=== PATIENT | female | born 1995 | race Caucasian/White ===

== ENCOUNTER → 2019-05-05 | Outpatient (CLI) | payer BC ==
[~2019-05-05] MED LIST: BIRTH CONTROL PILLS; Norco 5-325 Ta1 EACH PO
[2019-05-07 16:07] LABS: HPV 16 Negative (Negative); HPV 18 Negative (Negative); HPV OTHER HR TYPES Negative (Negative)
[2019-05-08 05:08] LABS: CHLAMYDIA TRACHOMATIS, NAA Negative (Negative); NEISSERIA GONORRHOEAE, NAA Negative (Negative)
== END | disposition home or self-care (01) ==
LOC: LAB 17:58 → LAB SHORT 17:58
PROVIDERS: Obstetrics & Gynecology Gynecology
DX: Z11.3 Encounter for screening for infections with a predominantly sexual mode of transmission (principal); Z12.4 Encounter for screening for malignant neoplasm of cervix
CPT/HCPCS: 87491; 87591; 87624; G0123

== ENCOUNTER → 2020-05-31 | Outpatient (CLI) | payer BC | END | disposition home or self-care (01) | LOC: LAB SHORT 15:52 → LAB 15:52 | DX: R30.0 Dysuria (principal) | CPT/HCPCS: 87086 ==

== ENCOUNTER 2022-06-28 23:37 | Emergency (ER) | payer OTHER, BC ==
[~2022-06-28] VITALS: Ht 152.4 cm; Wt 63.5 kg
== END 2022-06-29 00:59 | disposition home or self-care (01) ==
LOC: ER 23:37
DX: S61.213A Laceration without foreign body of left middle finger without damage to nail, initial encounter (principal); Z23 Encounter for immunization; W25.XXXA Contact with sharp glass, initial encounter
CPT/HCPCS: 12001; 90471; 90714; 99282

== ENCOUNTER 2024-05-05 23:01 | Inpatient (IN) | payer OTHER ==
[~2024-05-05] VITALS: Ht 154.9 cm; Wt 86.3 kg
[2024-05-05 23:31] VITALS: BP 134/83
[2024-05-06] VITALS (34 sets, daily range): BP systolic 110–147; BP diastolic 56–101
[2024-05-06] MEDS ORDERED: Calcium Carbonate 500 MG Tab Chew PO PRN (01:15)
[2024-05-06] MEDS ORDERED: Ondansetron HCl 2 MG / ML 2ML Vial IV PRN (01:15)
[2024-05-06] MEDS ORDERED: Misoprostol 200 MCG Tab BC PRN (01:15)
[2024-05-06] MEDS ORDERED: Carboprost Tromethamine 250 MCG/ML 1ML Amp IM PRN (01:15)
[2024-05-06] MEDS ORDERED: Acetaminophen 500 MG Tab PO PRN (01:15)
[2024-05-06] MEDS ORDERED: Penicillin G Potassium 5,000,000 UNITS in NS 250 ML IV ONE (01:15)
[2024-05-06] MEDS ORDERED: OXYTOCIN/RINGER'S LACTATE 500 ML IV PRN (01:15)
[2024-05-06] MEDS ORDERED: FentaNYL Citrate 50 MCG/ML 2 ML Injection IV PRN (01:15)
[2024-05-06] MEDS ORDERED: Methylergonovine Maleate 0.2MG / ML 1ML Amp IM PRN ×2 (01:15→08:40)
[2024-05-06] MEDS ORDERED: Misoprostol 200 MCG Tab PR PRN ×2 (01:15→08:40)
[2024-05-06] MEDS ORDERED: Oxytocin 10 Unit / ML Vial IM PRN (01:15)
[2024-05-06] MEDS ORDERED: Lactated Ringer's 1,000 ML IV PRN (01:15)
[2024-05-06] MEDS ORDERED: Tranexamic Acid 100 ML IV PRN (01:20)
[2024-05-06 02:34] LABS: BASOPHILS ABSOLUTE AUTO 0.03 K/mm3 (0.00-0.23); BASOPHILS PERCENT AUTO 0 % (0-2); EOSINOPHILS ABSOLUTE AUTO 0.02 K/mm3 (0.00-0.68); EOSINOPHILS PERCENT AUTO 0 % (0-6); Hematocrit 35.8 % (33.0-51.0); Hemoglobin 12.1 g/dL (11.5-16.0); IMMATURE GRAN ABSOLUTE AUTO 0.17 K/mm3 (0.00-0.10); IMMATURE GRAN PERCENT AUTO 1 % (0-1); LYMPHOCYTES ABSOLUTE AUTO 1.67 K/mm3 (0.84-5.20); LYMPHOCYTES PERCENT AUTO 9 % (21-46); MONOCYTES ABSOLUTE AUTO 1.01 K/mm3 (0.16-1.47); MONOCYTES PERCENT AUTO 5 % (4-13); Mean Corpuscular HGB 29.2 pg (26.0-34.0); Mean Corpuscular HGB Conc 33.8 g/dL (31.5-36.5); Mean Corpuscular Volume 87 fL (80-100); Mean Platelet Volume 9.1 fL (9.1-12.4); NEUTROPHILS ABSOLUTE AUTO 15.92 K/mm3 (1.96-9.15); NEUTROPHILS PERCENT AUTO 85 % (41-73); Platelet Count 270 K/mm3 (150-400); RDW Coefficient Variation 13.4 % (11.7-14.2); RDW Standard Deviation 41.6 fL (35.1-46.3); Red Blood Cell Count 4.14 M/mm3 (3.80-5.20); White Blood Cell Count 18.82 K/mm3 (4.00-11.30)
[2024-05-06] MEDS ORDERED: ePHEDrine Sulfate 50 MG/ML 1ML Injection XX PRN (03:15)
[2024-05-06] MEDS ORDERED: FentaNYL 2mcg/ml-Bup 0.1% Epd 250 ML EPI PRN (03:15)
[2024-05-06] MEDS ORDERED: Lactated Ringer's 1,000 ML IV SCH ×3 (03:15→08:40)
[2024-05-06] MEDS ORDERED: Penicillin G Potassium 2,500,000 UNITS in Dextrose 5% 100 ML IV SCH (06:00)
[2024-05-06] MEDS ORDERED: Ketorolac Tromethamine 30mg Vial IV PRN (08:40)
[2024-05-06] MEDS ORDERED: Ibuprofen 400 MG Tab PO PRN (08:45)
[2024-05-06] MEDS ORDERED: Acetaminophen 325 MG TABLET PO PRN (08:45)
[2024-05-06] MEDS ORDERED: Docusate Sodium 100 MG Cap PO PRN (08:45)
[2024-05-06] MEDS ORDERED: Lanolin Cream TOP PRN (08:45)
[2024-05-06] MEDS ORDERED: Benzocaine Topical Anesthetic Spray 60GM TOP PRN (08:45)
[2024-05-06] MEDS ORDERED: OXYTOCIN/RINGER'S LACTATE 500 ML IV SCH (08:45)
[2024-05-06] MEDS ORDERED: Witch Hazel/Glycerin PADS TOP PRN (08:45)
[2024-05-06] MEDS ORDERED: Prenatal Vit/FE Fumarate/FA 1 Tab PO SCH (09:00)
--- NOTE | 2024-05-06 11:47 | NUR ---
ASSUMED CARE, PT UP TO BATHROOM, LEGS STILL VERY DENSE FROM EPIDURAL. UP TO BR WITH ASSISTANCE IN CHAIR. KNOWS TO CALL TO AMBULATE AGAIN. FIRST PP VOID. JESSICA CARE EDUCATED ON
[2024-05-07 05:06] VITALS: BP 110/68
[2024-05-07 07:58] VITALS: BP 120/69
--- NOTE | 2024-05-07 10:31 | NUR ---
discharge instructions given, pt denies any further questions. bands matched, hugs removed
== END 2024-05-07 10:20 | disposition home or self-care (01) | DRG 807 ==
LOC: OBS 23:01 → BC 23:03 → OBS 05-06 01:10 → BC 05-06 01:11
PROVIDERS: ADMIT Advanced Practice Midwife
PROC: 10E0XZZ Delivery of Products of Conception, External Approach (ICD-10-PCS; principal; 2024-05-06)
PROC: 0HQ9XZZ Repair Perineum Skin, External Approach (ICD-10-PCS; 2024-05-06)
PROC: 3E0R3BZ Introduction of Anesthetic Agent into Spinal Canal, Percutaneous Approach (ICD-10-PCS; 2024-05-06)
PROC: 00HU33Z Insertion of Infusion Device into Spinal Canal, Percutaneous Approach (ICD-10-PCS; 2024-05-06)
DX: O99.824 Streptococcus B carrier state complicating childbirth (principal); Z37.0 Single live birth; Z3A.38 38 weeks gestation of pregnancy; O70.0 First degree perineal laceration during delivery; O99.214 Obesity complicating childbirth; O99.814 Abnormal glucose complicating childbirth; Z79.899 Other long term (current) drug therapy; Z98.890 Other specified postprocedural states
CPT/HCPCS: 51702; 59025; 81003; 85025; 86850; 86900; 86901; 99214; A9270; J1885; J2405; J2540; J7050; J7120

== ENCOUNTER → 2024-06-17 | Outpatient (CLI) | payer OTHER | END | disposition home or self-care (01) | LOC: LAB 13:19 → LAB SHORT 13:19 | PROVIDERS: Advanced Practice Midwife | DX: Z01.419 Encounter for gynecological examination (general) (routine) without abnormal findings (principal) | CPT/HCPCS: G0123 ==